=== PATIENT | female | born 1995 | race Caucasian/White ===

== ENCOUNTER 2017-05-12 02:24 | Emergency (ER) | payer BC ==
[~2017-05-12] VITALS: Ht 167.6 cm; Wt 63.5 kg
--- NOTE | 2017-05-12 02:27 | NUR ---
21 YO FEMALE BB RA, ETOH INTOXICATION. PT GOWNED, PLACED ON [employer] OFFICER. NAD NOTED, SKIN WARM AND DRY, RESP EVEN AND UNLABORED. PT IS ALERT X 3, NOTED VOMIT ON PT SHIRT. AWAITING ORDERS FROM PROVIDER, WILL CONTINUE TO MONITOR
[2017-05-12] MEDS ORDERED: ONDANSETRON 4 MG TAB.RAPDIS ONE (02:29)
[2017-05-12] MEDS ORDERED: ONDANSETRON 4 MG TAB.RAPDIS SL ONE (02:30)
--- NOTE | 2017-05-12 02:30 | NUR ---
MD DISLA AT BED SIDE FOR EVAL
--- NOTE | 2017-05-12 02:31 | NUR ---
MEDICATED PT ORDERED
--- NOTE | 2017-05-12 05:22 | NUR ---
PATIENT IS AWAKE, STILL SEEMS INTOXICATED. PATIENT IS UNABLE TO AMBULATE WITH STEADY GAIT. MD NOTIFIED. WILL CONTINUE TO MONITOR
--- NOTE | 2017-05-12 06:45 | NUR ---
PATIENT IS RESTING IN ER BED, NAD NOTED, SKIN WARM AND DRY. PT IS ON CAFE SERVER. WILL CONTINUE TO MONITOR
--- NOTE | 2017-05-12 07:15 | NUR ---
RECEIVED PATIENT IN STABLE CONDITION. WILL CONTINUE TO MONITOR .
--- NOTE | 2017-05-12 08:52 | NUR ---
Patient discharged to home in stable condition. Written and verbal after care instructions given. Patient verbalizes understanding of instruction.
[2017-05-12 08:56] VITALS: BP 117/68
== END 2017-05-12 08:57 | disposition home or self-care (01) ==
LOC: ER 02:26
DX: F10.129 Alcohol abuse with intoxication, unspecified (principal); R79.89 Other specified abnormal findings of blood chemistry
CPT/HCPCS: 82962; 99283; A4606; Q0162; Z7610